=== PATIENT | female | born 1940 | race Caucasian/White ===

== ENCOUNTER 2021-02-16 11:08 | Emergency (ER) | payer MEDICARE ==
[~2021-02-16] VITALS: Ht 160 cm; Wt 78.9 kg
[2021-02-16] MEDS ORDERED: LISINOPRIL-HCT1 EAC2 PO (11:42)
[2021-02-16] MEDS ORDERED: ATIVAN0.5 MG PO (11:42)
[2021-02-16] MEDS ORDERED: EXCEDRIN EXTRA1 EAC1 PO (11:44)
--- OUTSIDE RECORDS SUMMARY | 2021-02-16 12:18 | XMS ---
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 - 2 Visits in 30 Days CARE PROVIDERS JASMEET DUBON Physician Herpetologist Current PHONE: [phone] Janelle has no Care Guidelines for this patient. EAmie VISIT COUNT (12 MO.) [address] [place] [address] TOTAL 5 NOTE: Visits indicate total known visits. ED/C VISIT TRACKING (12 MO.) 02/16/2021 11:09 [facility] [place] TYPE: Emergency COMPLAINT: - PANIC ATTACK, NAUSEA 01/27/2021 12:33 [facility] [place] TYPE: Emergency COMPLAINT: - RASH UNDER BREAST DIAGNOSES: - RASH UNDER BREAST 12/25/2020 16:16 [facility] [place] TYPE: Emergency DIAGNOSES: - PANIC ATTACK - Anxiety disorder, unspecified 12/24/2020 10:56 [facility] [place] TYPE: Emergency DIAGNOSES: - Other nonspecific abnormal finding of lung field - DIARRHEA BLOATED REACTION TO NEW MED - Acute cystitis without hematuria - Nausea with vomiting, unspecified 12/22/2020 16:29 [facility] [place] TYPE: Emergency DIAGNOSES: - Acute cystitis without hematuria - PANIC ATTACK - Other nonspecific abnormal finding of lung field - Panic disorder [episodic paroxysmal anxiety] INPATIENT VISIT TRACKING (12 MO.) No inpatient visits to display in this time frame [email or web address]
== END 2021-02-16 12:20 | disposition home or self-care (01) ==
LOC: ED 11:08
DX: F41.9 Anxiety disorder, unspecified (principal); I10 Essential (primary) hypertension; Z79.899 Other long term (current) drug therapy; Z79.82 Long term (current) use of aspirin
CPT/HCPCS: 99283